=== PATIENT | female | born 1985 | race Caucasian/White ===

== ENCOUNTER 2016-08-10 17:01 | Emergency (ER) | payer SELFPAY ==
[2016-08-10 17:18] VITALS: BMI 21.2
[2016-08-10 17:19] VITALS: BP 106/64
--- NOTE | 2016-08-10 18:31 | DR.FBACK ---
HPI - Time Seen Time seen: 18:20 - PCP Primary Care Physician: LENA KIM - Complaint Chief Complaint Doctor Comments: Patient reports that she has had nausea and vomiting for three days associated with intermittent abdominal pain. She has been on zofran for vomitng which has helped very little Chief Complaint:: PT STATES " I WENT TO MY DR TODAY AND THEY TOLD ME MY BP WAS HIGH AND I HAD BLOOD " AND I WAS SENT FROM DR. SOSA FOR A CT TO SEE WHERE THE BLOOD WAS COMING FROM". - Source History Provided: Patient - Mode of Arrival Mode of Arrival: Ambulatory - Timing Onset of Chief Complaint: 07/07/16 PMH - PMH Past Medical History: Yes Past Medical History: Asthma Past Surgical History: Yes Surgical History: Abdominal Surgery, Cholecystectomy, Hysterectomy - Family History History of Family Medical Conditions: No Family Medical History: Cancer - Social History Does patient currently use any type of tobacco product: Yes Have you used tobacco products in the last 12 months: Yes How many years tobacco product used: 10 Do you use any recreational Drugs:: No - infectious screening In the last 2 months have you had wt loss of >10#?: NO Have you had fever, night sweats or hemotysis?: No Have you traveled outside the country in the last 6 months?: No ROS - Review of Systems Eyes: No Symptoms Reported ENTM: No Symptoms Reported Respiratoy: No Symptoms Reported Cardiovascular: No Symptoms Reported Gastrointestinal/Abdominal: See HPI, Nausea, Vomiting Genitourinary: No Symptoms Reported Neurological: No Symptoms Reported Musculoskeletal: No Symptoms Reported Integumentary: No Symptoms Reported Hematologic/Lymphatic: No Symptoms Reported Endocrine: No Symptoms Reported Psychiatric: No Symptoms Reported All Other Systems: Reviewed and Negative PE - Vitals Vital Signs: Temp Pulse Resp BP BP BP Pulse Ox 08/10/16 17:10 98.3 F 89 18 106/64 100 11/10/15 08:00 93/57 93/57 11/10/15 04:00 94/58 - General General Appearance: Alert, In No Apparent Distress - Head Head Exam: Normal Inspection, Atraumatic - Eyes Eye exam: Normal Appearance, PERRL, EOMI - ENT ENT Exam: Normal Exam - Chest Chest Inspection: Normal Inspection - Respiratory Respiratory Exam: Normal Lung Sounds Bilat Respiratory Exam: Bilateral Clear to Auscultation - Cardiovascular Cardiovascular Exam: Regular Rate, Normal Rhythm - Abdominal Exam Abdominal Exam: Normal Inspection, Normal Bowel Sounds, Other (left flank pain) Abdominal Tenderness: Diffuse - Genitourinary External Exam: Female: Deferred : Speculum Exam (Female): Deferred : Bimanual Exam (female): Deferred - Extremities Extremities Exam: Normal Inspection, Full ROM - Back Back Exam: Normal Inspection, Full ROM - Neurological Neurological Exam: Alert, Oriented X3, CN II-XII Intact - Psychiatric Psychiatric Exam: Depressed - Skin Skin Exam: Warm, Dry, Intact Course - Reevaluation 1st: Improved ROR - Labs Reviewed Result Diagrams: 08/10/16 18:43 08/10/16 18:43 Laboratory: WBC 3.5 X10^3/uL (3.6-10.0) L 08/10/16 18:43 RBC 5.10 X10^6/uL (3.5-5.4) 08/10/16 18:43 Hgb 16.0 g/dL (12.0-16.0) 08/10/16 18:43 Hct 45.6 % (36.0-47.0) 08/10/16 18:43 MCV 89.4 fL (80.0-100.0) 08/10/16 18:43 MCH 31.4 pg (27.0-34.0) 08/10/16 18:43 MCHC 35.1 g/dL (33.0-35.0) H 08/10/16 18:43 RDW 12.5 % (11.6-16.5) 08/10/16 18:43 Plt Count 157 X10^3/uL (150.0-450.0) 08/10/16 18:43 MPV 10.6 fL (7.4-11.0) 08/10/16 18:43 Neut % 66.2 % (42.0-75.0) 08/10/16 18:43 Lymph % 21.3 % (21.0-51.0) 08/10/16 18:43 Hemphill % 11.6 % (0.0-13.0) 08/10/16 18:43 Eos % 0.4 % (0.9-2.9) L 08/10/16 18:43 Baso % 0.5 % (0.2-1.0) 08/10/16 18:43 Neut # 2.3 x10^3/uL (2.2-4.8) 08/10/16 18:43 Lymph # 0.8 X10^3/uL (1.3-2.9) L 08/10/16 18:43 Hemphill # 0.4 x10^3/uL (0.3-0.8) 08/10/16 18:43 Eos # 0.0 x10^3/uL (0.0-0.2) 08/10/16 18:43 Baso # 0.0 X10^3/uL (0.0-0.1) 08/10/16 18:43 Absolute Nucleated RBC 0.5 /100WBC 08/10/16 18:43 Sodium 143 mmol/L (136-145) 08/10/16 18:43 Corrected Sodium TNP 08/10/16 18:43 Potassium 3.5 mmol/L (3.5-5.1) 08/10/16 18:43 Chloride 102 mmol/L (98-107) 08/10/16 18:43 Carbon Dioxide 29.7 mmol/L (21-32) 08/10/16 18:43 BUN 9 mg/dL (7-18) 08/10/16 18:43 Creatinine 0.76 mg/dL (0.55-1.02) 08/10/16 18:43 Est GFR (MDRD) Af Amer > 60 (>60) 08/10/16 18:43 Est GFR (MDRD) Non-Af > 60 (>60) 08/10/16 18:43 Glucose 98 mg/dL (65-99) 08/10/16 18:43 Calcium 9.4 mg/dL (8.5-10.1) 08/10/16 18:43 Corrected Calcium TNP 08/10/16 18:43 Total Bilirubin 1.00 mg/dL (0.2-1.0) 08/10/16 18:43 AST 25 Units/L (15-37) 08/10/16 18:43 ALT 24 Units/L (12-78) 08/10/16 18:43 Alkaline Phosphatase 98 Units/L (46-116) 08/10/16 18:43 C-Reactive Protein 9.50 mg/L (0-3.0) H 08/10/16 18:43 Total Protein 8.7 g/dL (6.4-8.2) H 08/10/16 18:43 Albumin 4.7 g/dL (3.4-5.0) 08/10/16 18:43 Globulin 4.0 g/dL (2.5-4.5) 08/10/16 18:43 Albumin/Globulin Ratio 1.2 Ratio (1.1-2.1) 08/10/16 18:43 Specimen Type Clean catch urine 08/10/16 18:43 Urine Color Yellow (YELLOW) 08/10/16 18:43 Urine Appearance Slightly hazy (CLEAR) 08/10/16 18:43 Urine pH 6.0 (5.0 - 8.0) 08/10/16 18:43 Ur Specific [place] 1.020 (1.000-1.030) 08/10/16 18:43 Urine Protein 2+ (NEGATIVE) 08/10/16 18:43 Urine Glucose (UA) Negative (NEGATIVE) 08/10/16 18:43 Urine Ketones 3+ (NEGATIVE) 08/10/16 18:43 Urine Occult Blood 4+ (NEGATIVE) 08/10/16 18:43 Urine Nitrite Negative (NEGATIVE) 08/10/16 18:43 Urine Bilirubin Negative (NEGATIVE) 08/10/16 18:43 Urine Urobilinogen Normal (NORMAL) 08/10/16 18:43 Ur Leukocyte Esterase 1+ (NEGATIVE) 08/10/16 18:43 Urine RBC 5-10 /HPF (NEGATIVE) 08/10/16 18:43 Urine WBC 0-3 /HPF (NEGATIVE) 08/10/16 18:43 Ur Squamous Epith Cells Moderate /HPF (NEGATIVE) 08/10/16 18:43 Urine Bacteria Trace /HPF (NEGATIVE) 08/10/16 18:43 Urine Mucus Few /HPF (NEGATIVE) 08/10/16 18:43 Ur Culture Indicated? No/not indicated 08/10/16 18:43 - XRAY XRAY Interpreted by: Radiologist (CT: Abd/pelv: The heart is normal in size, There is no pericardial effusion. Lung bases are clear whtout focal consolidation, pleural effusion or pneumothorax. Liver and spleen are normal in size, enhancement characteristics and contour. No focal lesions. The portal vein is patent. No ductal dilatation. Gallbladder absent. The pancreas is unremarkable. Adrenal glands are normal. Kidneys enhance symmetrically without hydronephrosis or nephrolithiasis. No bowel obstruction or inflammation. Normal appendix. No abnormal appearing mesenteric or retroperitoneal lymph nodes. No free fluid or fluid collections. The bladder is normal in appearance. Uterus and ovaries absent. No free fluid or abnormal pelvic lymph nodes. No aggressive osseous lesions. Impression: Negative CT of the abdomen and pelvis.) - Diagnosis Discharge Problem: Chronic generalized abdominal pain - Discharge Plan Condition: Stable - Follow ups/Referrals Follow ups/Referrals: Minesh Sosa [Primary Care Provider] - 3 days - Instructions
[2016-08-10 19:01] LABS: BILIRUBIN,URINE NEGATIVE (NEGATIVE); BLOOD/HEMOGLOBIN,URINE 4+ (NEGATIVE); GLUCOSE, URINE NEGATIVE (NEGATIVE); KETONES,URINE 3+ (NEGATIVE); LEUKOCYTE ESTERASE ,URINE 1+ (NEGATIVE); NITRITES,URINE NEGATIVE (NEGATIVE); PROTEIN,URINE 2+ (NEGATIVE); UROBILINOGEN,URINE NORMAL (NORMAL)
[2016-08-10 19:08] LABS: ALANINE AMINOTRANSFERASE 24 Units/L (12-78); ALBUMIN 4.7 g/dL (3.4-5.0); ALKALINE PHOSPHATASE 98 Units/L (46-116); ASPARTATE AMINO TRANSFERASE 25 Units/L (15-37); BLOOD UREA NITROGEN 9 mg/dL (7-18); CALCIUM 9.4 mg/dL (8.5-10.1); CARBON DIOXIDE 29.7 mmol/L (21-32); CHLORIDE 102 mmol/L (98-107); CREATININE 0.76 mg/dL (0.55-1.02); GLUCOSE 98 mg/dL (65-99); SODIUM 143 mmol/L (136-145); TOTAL PROTEIN 8.7 g/dL (6.4-8.2); eGFR BLACK RACES > 60 (>60); eGFR NON BLACK RACES > 60 (>60)
[2016-08-10 19:09] LABS: APPEARANCE,URINE SLIGHTLY HAZY (CLEAR); BACTERIA,URINE TRACE /HPF (NEGATIVE); COLOR,URINE YELLOW (YELLOW); SQUAMOUS EPITHELIAL CELL,UR MODERATE /HPF (NEGATIVE)
[2016-08-10 19:10] LABS: MUCUS,URINE FEW /HPF (NEGATIVE)
[2016-08-10 19:11] LABS: BASOPHILS % (AUTO) 0.5 % (0.2-1.0); EOSINOPHILS % (AUTO) 0.4 % (0.9-2.9); HEMATOCRIT 45.6 % (36.0-47.0); LYMPHOCYTES # (AUTO) 0.8 X10^3/uL (1.3-2.9); LYMPHOCYTES % (AUTO) 21.3 % (21.0-51.0); MEAN CORPUSCULAR HEMOGLOBIN 31.4 pg (27.0-34.0); MEAN CORPUSCULAR HGB CONC 35.1 g/dL (33.0-35.0); MEAN CORPUSCULAR VOLUME 89.4 fL (80.0-100.0); MEAN PLATELET VOLUME 10.6 fL (7.4-11.0); MONOCYTES # (AUTO) 0.4 x10^3/uL (0.3-0.8); MONOCYTES % (AUTO) 11.6 % (0.0-13.0); NEUTROPHILS # (AUTO) 2.3 x10^3/uL (2.2-4.8); NEUTROPHILS % (AUTO) 66.2 % (42.0-75.0); PLATELET COUNT 157 X10^3/uL (150.0-450.0); RED CELL DISTRIBUTION WIDTH 12.5 % (11.6-16.5); WHITE BLOOD COUNT 3.5 X10^3/uL (3.6-10.0)
[2016-08-10] MEDS ORDERED: NS 1000 ML 1,000 ML IV ONE (19:47)
[2016-08-10] MEDS ORDERED: NS 1000 ML 1,000 ML ONE (19:48)
[2016-08-10] MEDS ORDERED: ZOFRAN INJ 4 MG VIAL IVP ONE (19:49)
[2016-08-10] MEDS ORDERED: ZOFRAN INJ 4 MG VIAL ONE ×2 (20:00→20:06)
[2016-08-10] MEDS ORDERED: NS 100 ML IV 100 ML IV ONE (20:12)
--- NOTE | 2016-08-10 21:43 | CT ---
CT OF THE ABDOMEN AND PELVIS WITH CONTRAST HISTORY: Abdominal pain. Comparison: 11/09/2015 Technique: Multiple axial images of the abdomen and pelvis were obtained from the lung bases to the pubic symph ysis follow the administration of IV contrast. Dose reduction techniques including Automated Exposu re Control (AEC) and adjustment of mA and kV were utlized. Findings: The heart is normal in size. There is no pericardial effusion. Lung bases are clear without focal co nsolidation, pleural effusion or pneumothorax. Liver and spleen are normal in size, enhancement characteristics and contour. No focal lesions. The portal vein is patent. No ductal dilitation. Gallbladder absent. The pancreas is unremarkable. Adren al glands are normal. Kidneys enhance symmetrically without hydronephrosis or nephrolithiasis. No bowel obstruction or inflammation. Normal appendix. No abnormal appearing mesenteric or retroperi toneal lymph nodes. No free fluid or fluid collections. The bladder is normal in appearance. Uterus and ovaries absent. No free fluid or abnormal pelvic lym ph nodes. No aggressive osseous lesions. IMPRESSION: 1. Negative CT of the abdomen and pelvis. Reported By:
== END 2016-08-10 22:10 | disposition home or self-care (01) ==
LOC: ER 17:26
DX: R10.84 Generalized abdominal pain (principal)
CPT/HCPCS: 36415; 74177; 80053; 81001; 85025; 86140; 96365; 96367; 96374; 96375; 99283; A4222; J2405

== ENCOUNTER 2016-12-27 22:57 | Emergency (ER) | payer SELFPAY ==
[2016-12-27 23:06] VITALS: BP 120/6; BMI 20.9
--- NOTE | 2016-12-27 23:42 | DR.GENAD ---
HPI - PCP Primary Care Physician: LENA - Complaint/Symptoms Chief Complaint Doctors Comments: Patient presents with complaint of sharp inferior left breast whenever she takes a deep breath. She has no history of cardiac disease Chief Complaint:: PT HAS HX OF PALPITATIONS; SEEN [employer] ATT[employer]NEY APPROX 6 MOS AGO ; PAIN UNDER LEFT BREAST; SHARP PAIN UPON DEEP BREATHING Self Treatment fo Chief Complaint: CLONIPINE AT APPROX 1600 TODAY - Source History Provided: Patient - Mode of Arrival Mode of Arrival: Ambulatory - Timing Onset of Chief Complaint: 12/26/16 PMH - PMH Past Medical History: Yes Past Medical History: Asthma Past Medical History Comment: PALPITATIONS Past Surgical History: Yes Surgical History: Cholecystectomy, Hysterectomy, Tonsillectomy - Family History History of Family Medical Conditions: No Family Medical History: Cancer - Social History Does patient currently use any type of tobacco product: Yes Have you used tobacco products in the last 12 months: Yes Type of Tobacco Use: Cigarettes Alcohol Use: None Do you use any recreational Drugs:: No Lives With: Spouse Lives Where: Home - infectious screening In the last 2 months have you had wt loss of >10#?: NO Have you had fever, night sweats or hemotysis?: No Have you traveled outside the country in the last 6 months?: No Isolation: Standard ROS - Review of Systems Eyes: No Symptoms Reported ENTM: No Symptoms Reported Respiratoy: No Symptoms Reported Cardiovascular: No Symptoms Reported Gastrointestinal/Abdominal: No Symptoms Reported Genitourinary: No Symptoms Reported Neurological: No Symptoms Reported Musculoskeletal: No Symptoms Reported Integumentary: No Symptoms Reported Hematologic/Lymphatic: No Symptoms Reported Endocrine: No Symptoms Reported Psychiatric: No Symptoms Reported All Other Systems: Reviewed and Negative PE - Vital Signs Vitals: Temperature 97.9 F Pulse Rate 90 Respiratory Rate 20 Blood Pressure [Right Arm] 93/57 Blood Pressure [Left Arm] 94/58 Blood Pressure 120/6 O2 Sat by Pulse Oximetry 100 - General General Appearance: Alert, In No Apparent Distress - Head Head Exam: Normal Inspection, Atraumatic - Eyes Eye exam: Normal Appearance, PERRL, EOMI - ENT ENT Exam: Normal Exam External Ear Exam: Normal External Inspection TM/Canal Exam: Bilateral Normal Nose Exam: Normal Nose Exam Mouth Exam: Normal Inspection Throat Exam: Normal Inspection - Neck Neck Exam: Normal Inspection, Full ROM - Chest Chest Inspection: Tenderness (left inferior breast) - Respiratory Respiratory Exam: Normal Lung Sounds Bilat Respiratory Exam: Bilateral Clear to Auscultation - Cardiovascular Cardiovascular Exam: Regular Rate, Normal Rhythm - Abdominal Exam Abdominal Exam: Normal Inspection, Normal Bowel Sounds Abdominal Tenderness: negative: RUQ, RLQ, LUQ, LLQ, Epigastrium, Suprapubic, Diffuse, Mild, Moderate, Severe, Other - Extremities Extremities Exam: Normal Inspection, Full ROM - Back Back Exam: Normal Inspection, Full ROM - Neurologic Neurological Exam: Alert, Oriented X3, CN II-XII Intact - Psychiatric Psychiatric Exam: Normal Affect, Normal Mood - Skin Skin Exam: Warm, Dry, Intact ROR - XRAY XRAY Interpreted by: Self (chest: negative) - Diagnosis Discharge Problem: Anterior chest wall pain - Discharge Plan Condition: Stable - Follow ups/Referrals Follow ups/Referrals: Minesh Sosa [Primary Care Provider] - 3 days - Instructions
--- NOTE | 2016-12-28 02:04 | RAD ---
Chest, two views Indication: Shortness of breath, chest pain Comparison: 11/09/2015 Findings: The heart size is normal. No focal consolidation, effusion or pneumothorax is identified. O sseous thorax is unremarkable. Impression: No acute cardiopulmonary abnormality. Reported By:
== END 2016-12-28 01:24 | disposition home or self-care (01) ==
LOC: ER 22:57
DX: R07.89 Other chest pain (principal)
CPT/HCPCS: 71020; 99282